=== PATIENT | female | born 1990 | race Two or more races ===

== ENCOUNTER → 2017-05-11 | Outpatient (CLI) | payer OTHER ==
[~2017-05-11] MED LIST: ACET50TA PO; COLA100C5 PO; IBUP-1114 PO
--- NOTE | 2017-05-12 07:14 | REP ---
Chest x-ray: Two views. History: Cough. . Comparison study: No comparison . Findings: The lungs are well inflated and free of infiltrate. The pleural angles are sharp. The heart size is normal. Pulmonary vasculature is not increased. No significant bony abnormality is seen. Impression: Negative chest x-ray. Signed by Lionel Alonso MD 05/11/2017 12:27 P
== END ==
LOC: M LRY 12:08
PROVIDERS: ATTEND Nurse Practitioner Family
DX: R05 Cough (principal)
CPT/HCPCS: 71020; 94640; G0463; J7644